=== PATIENT | female | born 2000 | race Two or more races ===

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

== ENCOUNTER → 2021-02-17 | Outpatient (CLI) | payer OTHER | END | disposition home or self-care (01) | LOC: PPH VACUNA 08:00 | PROVIDERS: ATTEND Emergency Medicine Pediatric Emergency Medicine | DX: Z23 Encounter for immunization (principal) ==

== ENCOUNTER 2021-02-18 12:50 | Outpatient (CLI) | payer OTHER | END 2021-02-18 12:54 | disposition home or self-care (01) | LOC: LAB 12:50 | PROVIDERS: ATTEND Emergency Medicine | DX: R05.8 Other specified cough (principal); R06.02 Shortness of breath; Z03.818 Encounter for observation for suspected exposure to other biological agents ruled out; Z20.828 Contact with and (suspected) exposure to other viral communicable diseases ==

== ENCOUNTER → 2021-08-21 | Emergency (ER) | payer OTHER ==
[~2021-08-21] VITALS: Ht 162.6 cm; Wt 61.2 kg
[~2021-08-21] MED LIST changes: +CLARITIN5 MG; +ZYRTEC10 M3 PO
== END | disposition home or self-care (01) ==
LOC: EMR PED 09:37
DX: I87.2 Venous insufficiency (chronic) (peripheral) (principal); M72.2 Plantar fascial fibromatosis; M79.89 Other specified soft tissue disorders; M79.671 Pain in right foot

== ENCOUNTER 2022-06-30 10:50 | Outpatient (CLI) | payer OTHER | END 2022-06-30 10:58 | disposition home or self-care (01) | LOC: LAB 10:50 | DX: J06.9 Acute upper respiratory infection, unspecified (principal) ==

== ENCOUNTER 2023-01-22 18:31 | Emergency (ER) | payer OTHER ==
[~2023-01-22] VITALS: Ht 162.6 cm; Wt 61.2 kg
[2023-01-22 19:42] LABS: HEMATOCRIT 37.4 % (36.0-45.00); HEMOGLOBIN 12.6 g/dL (12.0-15.00); MEAN CELL VOLUME 89.3 fL (80.00-100.00); MEAN CORPUSCULAR HEMOGLOBIN 30.2 pg (27.00-32.0); MEAN CORPUSCULAR HGB CONC 33.8 g/dl (32.0-36.0); PLATELET COUNT 242 K/uL (150-450); RED BLOOD COUNT 4.19 M/uL (4.00-6.00); RED CELL DISTRIBUTION WIDTH 13.7 % (11.5-14.5)
[2023-01-22 19:44] LABS: PH,URINE 5.5 (5.0-8.0); URINE APPEARANCE Clear; URINE BILIRRUBIN Negative (NEGATIVE); URINE BLOOD Negative; URINE COLOR Yellow; URINE GLUCOSE Negative (NEGATIVE); URINE LEUKOCYTE Negative; URINE NITRATE Negative; URINE PROTEIN Negative (NEGATIVE)
[2023-01-22 19:49] LABS: URINE BACTERIA 1922.7 uL (0.0-1933); URINE EPITHELIAL CELLS 41.2 uL (0.0-38.8); URINE RBC 4.1 uL (0.0-20.8); URINE WBC 22.2 uL (0.0-23.2)
[2023-01-22 20:02] LABS: CALCIUM 9.1 mg/dL (8.5-10.1); CREATININE SERUM 0.83 mg/dL (0.55-1.02); GFR 86.78; POTASSIUM 3.71 mEq/L (3.5-5.1)
[2023-01-23] MEDS ORDERED: LEVSIN/SL0.125 MG SL (00:46)
[2023-01-23] MEDS ORDERED: ONDANSETRON ODT4 MG PO (00:46)
[2023-01-23] MEDS ORDERED: INTESTINEX680 M2 PO (00:46)
[2023-01-23] MEDS ORDERED: PEPCID40 MG PO (00:46)
== END 2023-01-23 01:01 ==
LOC: ER 18:31
PROVIDERS: Emergency Medicine
DX: R11.10 Vomiting, unspecified (principal); R19.7 Diarrhea, unspecified; Z20.822 Contact with and (suspected) exposure to COVID-19

== ENCOUNTER 2023-10-24 13:22 | Emergency (ER) | payer OTHER ==
[~2023-10-24] VITALS: Ht 162.6 cm; Wt 67.1 kg
[~2023-10-24 13:22] MED LIST changes: +INTESTINEX680 M2 PO; +LEVSIN/SL0.125 MG SL; +ONDANSETRON ODT4 MG PO; +PEPCID40 MG PO
[2023-10-24 15:10] LABS: HEMATOCRIT 37.1 % (36.0-45.00); HEMOGLOBIN 12.6 g/dL (12.0-15.00); MEAN CELL VOLUME 90.6 fL (80.00-100.00); MEAN CORPUSCULAR HEMOGLOBIN 30.8 pg (27.00-32.0); PLATELET COUNT 257 K/uL (150-450); RED BLOOD COUNT 4.09 M/uL (4.00-6.00); RED CELL DISTRIBUTION WIDTH 14.5 % (11.5-14.5)
[2023-10-24] MEDS ORDERED: ZYRTEC10 MG PO (15:57)
[2023-10-24] MEDS ORDERED: FLONASE16 GM NASAL (15:57)
[2023-10-24] MEDS ORDERED: AMOX-CLAV 875-1 EAC1 PO (15:57)
== END 2023-10-24 16:22 | disposition home or self-care (01) ==
LOC: ER 13:22
PROVIDERS: Nurse Practitioner Family
DX: J32.9 Chronic sinusitis, unspecified (principal); R09.81 Nasal congestion; Z20.822 Contact with and (suspected) exposure to COVID-19

== ENCOUNTER → 2023-12-30 07:19 | Outpatient (CLI) | payer OTHER | END | disposition home or self-care (01) | LOC: LAB 07:19 | PROVIDERS: ATTEND Preventive Medicine Occupational Medicine | DX: J11.1 Influenza due to unidentified influenza virus with other respiratory manifestations (principal); Z20.828 Contact with and (suspected) exposure to other viral communicable diseases ==

== ENCOUNTER → 2023-12-30 | Emergency (ER) | payer OTHER ==
[~2023-12-30] MED LIST changes: +AMOX-CLAV 875-1 EAC1 PO; +ZYRTEC10 MG PO
== END | disposition left against medical advice (07) ==
LOC: ER 13:19
DX: Z53.21 Procedure and treatment not carried out due to patient leaving prior to being seen by health care provider (principal)

== ENCOUNTER 2024-01-01 09:39 | Outpatient (CLI) | payer OTHER ==
[2024-01-01 12:45] LABS: HEMATOCRIT 37.5 % (36.0-45.00); HEMOGLOBIN 12.6 g/dL (12.0-15.00); MEAN CELL VOLUME 92.9 fL (80.00-100.00); MEAN CORPUSCULAR HEMOGLOBIN 31.2 pg (27.00-32.0); MEAN CORPUSCULAR HGB CONC 33.6 g/dl (32.0-36.0); PLATELET COUNT 253 K/uL (150-450); RED BLOOD COUNT 4.04 M/uL (4.00-6.00); RED CELL DISTRIBUTION WIDTH 13.9 % (11.5-14.5)
== END 2024-01-01 09:42 | disposition home or self-care (01) ==
LOC: LAB 09:39
DX: Z00.00 Encounter for general adult medical examination without abnormal findings (principal)

== ENCOUNTER 2024-01-03 07:19 | Outpatient (CLI) | payer OTHER ==
[2024-01-03 07:53] LABS: HEMATOCRIT 38.1 % (36.0-45.00); HEMOGLOBIN 13.1 g/dL (12.0-15.00); MEAN CELL VOLUME 90.1 fL (80.00-100.00); MEAN CORPUSCULAR HGB CONC 34.4 g/dl (32.0-36.0); PLATELET COUNT 288 K/uL (150-450); RED BLOOD COUNT 4.22 M/uL (4.00-6.00); RED CELL DISTRIBUTION WIDTH 13.8 % (11.5-14.5)
[2024-01-03 07:58] LABS: URINE APPEARANCE Clear; URINE BILIRRUBIN Negative (NEGATIVE); URINE BLOOD Negative; URINE COLOR Yellow; URINE GLUCOSE Negative (NEGATIVE); URINE KETONE Negative (NEGATIVE); URINE LEUKOCYTE Negative; URINE NITRATE Negative; URINE PROTEIN Negative (NEGATIVE); URINE UROBILINOGEN 0.2 E.U./dl
[2024-01-03 07:59] LABS: URINE BACTERIA 757.2 uL (0.0-1933); URINE EPITHELIAL CELLS 32.1 uL (0.0-38.8); URINE RBC 6.7 uL (0.0-20.8); URINE WBC 5.5 uL (0.0-23.2)
[2024-01-03 08:05] LABS: URINE CAST 0.61 uL (0.0-1.40)
[2024-01-03 09:10] LABS: ALBUMIN 3.7 gm/dL (3.4-5.0); BILIRUBIN TOTAL 0.37 mg/dL (0.3-1.2); CHOL HDL RATIO 3.3 (0-5.0); CREATININE SERUM 0.78 mg/dL (0.55-1.02); GFR 92.35; GLOBULINA 3.9 G/DL (2.4-3.5); POTASSIUM 4.47 mEq/L (3.5-5.1); T4 FREE 0.94 NG/ML (0.76-1.46); TOTAL PROTEIN 7.6 gm/dL (6.4-8.2); TSH 0.83 uIU/mL (0.358-3.74)
[2024-01-03 15:04] LABS: RAPID PLASMA REAGIN NONREACTIVE BY RPR (NONREACTIVE)
[2024-01-04 07:09] LABS: hav igm Negative (Negative); hcv Non Reactive (Non Reactive); hep b c Negative (Negative); hep b s ag Negative (Negative)
[2024-01-05 12:04] LABS: chla t Negative (Negative); neiss Negative (Negative)
== END 2024-01-03 14:27 | disposition home or self-care (01) ==
LOC: LAB 07:19
DX: D64.9 Anemia, unspecified (principal); E55.9 Vitamin D deficiency, unspecified; R94.6 Abnormal results of thyroid function studies; Z13.1 Encounter for screening for diabetes mellitus; Z13.220 Encounter for screening for lipoid disorders; Z11.3 Encounter for screening for infections with a predominantly sexual mode of transmission; N92.1 Excessive and frequent menstruation with irregular cycle

== ENCOUNTER 2024-01-03 11:00 | Outpatient (CLI) | payer OTHER | END 2024-01-03 11:15 | disposition home or self-care (01) | LOC: PPH VACUNA 11:00 | PROVIDERS: ATTEND Emergency Medicine Pediatric Emergency Medicine | DX: Z23 Encounter for immunization (principal) ==

== ENCOUNTER 2024-03-03 08:43 | Outpatient (CLI) | payer OTHER ==
[2024-03-03 10:19] LABS: HEMATOCRIT 38.9 % (36.0-45.00); HEMOGLOBIN 13.1 g/dL (12.0-15.00); MEAN CELL VOLUME 93.5 fL (80.00-100.00); MEAN CORPUSCULAR HEMOGLOBIN 31.5 pg (27.00-32.0); MEAN CORPUSCULAR HGB CONC 33.7 g/dl (32.0-36.0); PLATELET COUNT 231 K/uL (150-450); RED BLOOD COUNT 4.16 M/uL (4.00-6.00); RED CELL DISTRIBUTION WIDTH 13.9 % (11.5-14.5)
[2024-03-03 10:45] LABS: INR 1.05; PARTIAL THROMBOPLASTIN TIME 26.7 SECONDS (22.0-34.0); PROTHROMBIN TIME 11.4 SECONDS (9.0-11.5)
== END 2024-03-03 08:46 | disposition home or self-care (01) ==
LOC: LAB 08:43
PROVIDERS: ATTEND Internal Medicine Infectious Disease
DX: D68.9 Coagulation defect, unspecified (principal)

== ENCOUNTER 2024-05-12 01:07 | Emergency (ER) | payer OTHER ==
[~2024-05-12] VITALS: Ht 162.6 cm; Wt 59.0 kg
[~2024-05-12 01:07] MED LIST changes: +CLARITIN5 MG PO; +PROZAC20 MG PO
[2024-05-12] MEDS ORDERED: ONDANSETRON HCL 2 MG/ML VIAL IV STA (03:03)
== END 2024-05-12 04:52 | disposition home or self-care (01) ==
LOC: ER 01:07
DX: K30 Functional dyspepsia (principal); R11.10 Vomiting, unspecified

== ENCOUNTER 2024-11-11 15:35 | Emergency (ER) | payer OTHER ==
[~2024-11-11] VITALS: Ht 162.6 cm; Wt 63.5 kg
[2024-11-11 15:37] VITALS: BP 111/76; O2SAT 99
[2024-11-11] MEDS ORDERED: KETOROLAC TROMETHAMINE 30 MG VIAL IM STA (17:40)
[2024-11-11] MEDS ORDERED: KETOROLAC TROMETHAMINE 30 MG VIAL ONE (17:46)
== END 2024-11-11 18:07 | disposition home or self-care (01) ==
LOC: ER 15:35
DX: M25.562 Pain in left knee (principal)